=== PATIENT | male | born 1985 | race Caucasian/White ===

== ENCOUNTER 2016-11-01 20:28 | Emergency (ER) | payer MEDICAID ==
[~2016-11-01] VITALS: Ht 175.3 cm; Wt 63.5 kg
[2016-11-01 20:35] VITALS: BP_SYST 152
[2016-11-01] MEDS ORDERED: KETOROLAC TROMETHAMINE 60 MG/2 ML VIAL IM ONE (21:00)
[2016-11-01] MEDS ORDERED: ONDANSETRON 4 MG ODT TAB PO ONE (21:00)
[2016-11-01 22:01] VITALS: BP_SYST 145
== END 2016-11-01 22:01 | disposition home or self-care (01) ==
LOC: SED 20:28
DX: R10.12 Left upper quadrant pain (principal); R11.2 Nausea with vomiting, unspecified
CPT/HCPCS: 96372; 99283; J1885; Q0162